=== PATIENT | male | born 1990 | race Two or more races ===

== ENCOUNTER 2019-11-11 14:41 | Inpatient (IN) | payer OTHER ==
--- NOTE | 2019-11-11 15:10 | BHS.RME ---
"Physical/Psych/Mental Status - Behavior General Behavior: Increased activity (restlessness, agitation) Eye Contact: Normal - Cooperativeness Cooperativeness: Cooperative - Thinking Thought Processes: Tight Thought content: Future oriented - Physical Health Problems Is patient presently having any pain?: No Does patient presently have any injuries (include location): No Does patient currently have a fever: No COWS - Scale Resting Pulse: 0= [place] 80 or Below Sweatin= No chills or Flushing Restless Observation: 3= Extraneous Movement Pupil Size: 1= Pupils >than Normal Bone or Joint Aches: 1= Mild Discomfort Runny Nose/ Eye Tearin= Nasal Congestion GI Upset > 30mins: 0= None Tremor Observation: 1= Tremor [place], Not Seen Yawning Observation: 0= None Anxiety or Irritability: 2=Irritable/Anxious Goose Flesh Skin: 0=Smooth Skin (Reynold Arechiga, 1990 Search Date: 11/11/2019 15:11:08 PM The Drug Utilization Report below displays all of the controlled substance prescriptions, if any, that your patient has filled in the last twelve months. The information displayed on this report is compiled from pharmacy submissions to the Department, and accurately reflects the information as submitted by the pharmacies. This report was requested by: Shelley Alcaraz | Reference #: [id number] There are no results for the search terms that you entered.) COWS Score: 9"
[2019-11-11 15:39] VITALS: BMI 27.4
--- NOTE | 2019-11-11 16:06 | HP ---
"COWS - Scale Resting Pulse: 0= [place] 80 or Below Sweatin= No chills or Flushing Restless Observation: 3= Extraneous Movement Pupil Size: 1= Pupils >than Normal Bone or Joint Aches: 1= Mild Discomfort Runny Nose/ Eye Tearin= Nasal Congestion GI Upset > 30mins: 0= None Tremor Observation: 1= Tremor [place], Not Seen Yawning Observation: 0= None Anxiety or Irritability: 2=Irritable/Anxious Goose Flesh Skin: 0=Smooth Skin (Reynold Arechiga, 1990 Search Date: 11/11/2019 15:11:08 PM The Drug Utilization Report below displays all of the controlled substance prescriptions, if any, that your patient has filled in the last twelve months. The information displayed on this report is compiled from pharmacy submissions to the Department, and accurately reflects the information as submitted by the pharmacies. This report was requested by: Shelley Alcaraz | Reference #: [id number] There are no results for the search terms that you entered.) COWS Score: 9 CIWA Score - Admission Criteria [facility] Guidelines: Admission for Medically Managed Detox: Requires at least one of the followin. CIWA greater than 12 2. Seizures within the past 24 hours 3. Delirium tremens within the past 24 hours 4. Hallucinations within the past 24 hours 5. Acute intervention needed for co occurring medical disorder 6. Acute intervention needed for co occurring psychiatric disorder 7. Severe withdrawal that cannot be handled at a lower level of care (continued vomiting, continued diarrhea, abnormal vital signs) requiring intravenous medication and/or fluids 8. Admitting History and Physical - Smoking History Smoking history: Current every day smoker Have you smoked in the past 12 months: Yes Aproximately how many cigarettes per day: 20 Admission ROS [facility] Chief Complaint: detox from heroin Allergies/Adverse Reactions: Allergies Allergy/AdvReac Type Severity Reaction Status Date / Time No Known Allergies Allergy Verified 11/11/19 16:41 History of Present Illness: Patient is a 29 y/o male with past medical history of anxiety who is presenting for detox from heroin. Patient began taking heroin at age 29. patient was taking percocets at age 27 but then started using heroin because percocet was too expensive. Patient uses 2 bundles a day. Patient denies using IV. Patient denies overdose. Last use was this morning. Patient also uses cocaine, 80 dollars worth a day and started using cocaine at age 28. Last use of cocaine was three days ago. Patient uses one once of marijuana a day. Patient takes 7 tabs of 10 mg a day. He buys off the street, is not prescribed. Patient does not drink alcohol. Patient smokes one pack of cigarettes a day. Patient is homeless, patient does not work. Denies any legal problems. patient meets inpatient criteria for heroin detox, poor recovery enviorment. Exam Limitations: No Limitations - Review of Systems Constitutional: Other (denies fever, chills) EENT: denies: Blurred Vision, Ear Pain, Hearing Loss Respiratory: denies: Cough, Shortness of Breath Cardiac: denies: Chest Pain GI: denies: Constipated, Diarrhea, Nausea, Vomiting Musculoskeletal: reports: Muscle Pain, Joint Stiffness Neuro: denies: Dizziness Endocrine: denies: Unexplained Weight Loss Hematology: denies: Anemia Patient History - Patient Medical History Hx Asthma: No Hx Chronic Obstructive Pulmonary Disease (COPD): No Hx Cardiac Disorders: No Hx Hypertension: No Hx Seizures: No Hx Diabetes: No Hx Gastrointestinal Disorders: No Hx Genitourinary Disorders: No Hx Sexually Transmitted Disorders: No Hx Renal Disease (ESRD): No Hx Depression: No Hx Suicide Attempt: No Hx Schizophrenia: No - Patient Surgical History Past Surgical History: No - PPD History Previous Implant?: No Documented Results: Negative w/o proof Implanted On Prior R Admission?: No - Smoking Cessation Smoking history: Current every day smoker Have you smoked in the past 12 months: Yes Aproximately how many cigarettes per day: 20 Initiated information on smoking cessation: No - Substances abused Heroin Other (specify): heroin Substance route: Inhalation Frequency: Daily Amount used: 7 bags Age of first use: 29 Date of last use: 11/11/19 Cocaine Substance route: Inhalation Frequency: 1-3 times last 30 days Amount used: $80 Age of first use: 28 Date of last use: 11/11/19 Other Other (specify): percocet Substance route: Oral Frequency: Daily Amount used: 10mg 7 tabs Age of first use: 27 Date of last use: 11/10/19 Marijuana/Hashish Substance route: Smoking Frequency: 1-2 times per week Amount used: 1 ounce Age of first use: 10 Date of last use: 11/10/19 Admission Physical Exam [facility] - Vital Signs Vital Signs: Vital Signs - 24 hr 11/11/19 15:28 Temperature 97.6 F Pulse Rate 56 L Respiratory 20 Rate Blood Pressure 117/71 - Physical General Appearance: Yes: No Apparent Distress HEENTM: Yes: Within Normal Limits, Normal ENT Inspection Respiratory: Yes: No Respiratory Distress, No Accessory Muscle Use Neck: No: Crepetius Cardiology: Yes: Regular Rhythm, Regular Rate Abdominal: Yes: Normal Bowel Sounds, Non Tender Back: Yes: Within Normal Limits Musculoskeletal: Yes: full range of Motion Extremities: No: Pedal Edema Neurological: Yes: Fully Oriented. No: Facial Droop - Diagnostic (1) Heroin withdrawal Current Visit: Yes Status: Acute (2) Cocaine abuse Current Visit: Yes Status: Acute (3) Opioid abuse Current Visit: Yes Status: Acute Cleared for Admission [facility] - Detox or Rehab [facility] Level of Care: Medically Managed Detox Regimen/Protocol: Methadone Breathalyzer - Breathalyzer Breathalyzer: 0 Vital Signs - Vital Signs Vital signs refused: No Temperature: 97.6 F Temperature source: Oral Pulse Rate: 56 Respiratory Rate: 20 Blood Pressure: 117/71 BP Location: Left Arm - Height Height: 5 ft 2 in - Weight Weight: 68.039 kg - BMI Body Mass Index (BMI): 27.4 Urine Drug Screen - Test Device Lot number: [id number] Expiration date: 06/16/21 - Control Is test valid?: Yes - Results Drug screen NEGATIVE: No Urine drug screen results: THC-Marijuana, KALEB-Cocaine, FEN-Fentanyl Inpatient Rehab Admission - Rehab Decision to Admit Inpatient rehab admission?: No"
[2019-11-11] MEDS ORDERED: ACETAMINOPHEN 325 MG TABLET (FP) PO PRN ×2 (16:11)
[2019-11-11] MEDS ORDERED: IBUPROFEN 400 MG TABLET (FP) PO PRN (16:11)
[2019-11-11] MEDS ORDERED: MAGNESIUM CITRATE 300 ML BOTTLE PO PRN (16:11)
[2019-11-11] MEDS ORDERED: BISMUTH SUBSALICYLATE 524 MG/30 ML UD PO PRN (16:11)
[2019-11-11] MEDS ORDERED: ONDANSETRON *ODT* 4 MG TABLET SL PRN (16:11)
[2019-11-11] MEDS ORDERED: METHADONE HCL 10 MG TABLET (FOR DETOX USE ONLY) PO ONE (16:11)
[2019-11-11] MEDS ORDERED: NICOTINE POLACRILEX 2 MG GUM BUC PRN (16:11)
[2019-11-11] MEDS ORDERED: MENTHOL/PHENOL 1 EACH UD MM PRN (16:11)
[2019-11-11] MEDS ORDERED: MAG HYDROX/AL HYDROX/SIMETH 30 ML UNIT-DOSE CUP PO PRN (16:11)
[2019-11-11] MEDS ORDERED: METHOCARBAMOL 500 MG TABLET PO PRN (16:11)
[2019-11-11] MEDS ORDERED: cloNIDine HCL 0.1 MG TABLET PO PRN (16:11)
[2019-11-11] MEDS ORDERED: MAGNESIUM HYDROX 2400MG/30ML ORAL SUSPENSION 30 ML CUP PO PRN (16:11)
[2019-11-11] MEDS: PRENATAL VITAMINS W/ FOLIC ACID TABLET (FP) PO SCH (17:12)
[2019-11-11] MEDS: NICOTINE 21 MG/24 HOURS TOPICAL PATCH TD SCH (17:12)
[2019-11-11] MEDS: hydrOXYzine PAMOATE 25 MG CAPSULE (FP) PO SCH ×2 (19:06→22:56)
[2019-11-11] MEDS: MELATONIN 5 MG TABLETS PO SCH (22:56)
[2019-11-11] MEDS: THIAMINE HCL 100 MG TABLET (FP) PO SCH (22:56)
[2019-11-12] MEDS: hydrOXYzine PAMOATE 25 MG CAPSULE (FP) PO SCH ×5 (07:10→22:55)
[2019-11-12] MEDS ORDERED: METHADONE HCL 10 MG TABLET (FOR DETOX USE ONLY) ONE (09:33)
[2019-11-12] MEDS ORDERED: METHADONE HCL 5 MG TABLET (FOR DETOX USE ONLY) ONE (09:34)
[2019-11-12] MEDS ORDERED: METHADONE (DETOX) 20 MG, METHADONE (DETOX) 5 MG PO ONE (10:00)
--- NOTE | 2019-11-12 10:20 | PN ---
Teaching Attending Note Name of Resident: Ella Boyle ATTENDING PHYSICIAN STATEMENT I saw and evaluated the patient. I reviewed the resident's note and discussed the case with the resident. I agree with the resident's findings and plan as documented. SUBJECTIVE: OBJECTIVE: ASSESSMENT AND PLAN: Agree with resident's findings and plan for detox.
[2019-11-12] MEDS: PRENATAL VITAMINS W/ FOLIC ACID TABLET (FP) PO SCH (10:31)
[2019-11-12] MEDS: NICOTINE 21 MG/24 HOURS TOPICAL PATCH TD SCH (10:31)
[2019-11-12 10:59] LABS: HEMATOCRIT 42.1 % (35.4-49); HEMOGLOBIN 14.2 GM/dL (11.7-16.9); MCH 32.5 pg (25.7-33.7); MCHC 33.7 g/dl (32.0-35.9); MEAN CELL VOLUME 96.5 fl (80-96); MEAN PLT VOLUME 9.3 fl (7.5-11.1); PLATELET COUNT 207 K/MM3 (134-434); RBC 4.37 M/mm3 (4.00-5.60); RDW 13.7 % (11.9-15.9); WHITE BLOOD COUNT 7.8 K/mm3 (4.0-10.0)
[2019-11-12 11:10] LABS: BILIRUBIN,TOTAL 0.8 mg/dL (0.2-1); BLOOD UREA NITROGEN 7.9 mg/dL (7-18); CALCIUM 9.1 mg/dL (8.5-10.1); CREATININE 0.9 mg/dL (0.55-1.3); POTASSIUM 4.4 mmol/L (3.5-5.1); TOT PROT 6.7 g/dl (6.4-8.2)
--- NOTE | 2019-11-12 15:04 | PN ---
S COWS - Scale Resting Pulse: 0= [place] 80 or Below Sweatin= No chills or Flushing Restless Observation: 1= Difficult to Sit Still Pupil Size: 1= Pupils >than Normal Bone or Joint Aches: 2= Severe Diffuse Aches Runny Nose/ Eye Tearin= Nasal Congestion GI Upset > 30mins: 2= Nausea/Diarrhea Tremor Observation of Outstretched Hands: 2= Slight Tremor Visible Yawning Observation: 1= 1-2x During Session Anxiety or Irritability: 2=Irritable/Anxious Goose Flesh Skin: 0=Smooth Skin COWS Score: 12 S Progress Note (SOAP) Subjective: alert,irritable,anxious,interrupted sleep,pain in the body and back, tremor,aching pain in the body and extremities Objective: 11/12/19 15:02 Vital Signs Temperature 98.0 F 11/12/19 12:52 Pulse Rate 59 L 11/12/19 12:52 Respiratory Rate 18 11/12/19 12:52 Blood Pressure 137/84 11/12/19 12:52 O2 Sat by Pulse Oximetry (%) 100 11/12/19 12:52 Laboratory Last Values WBC 7.8 K/mm3 (4.0-10.0) 11/12/19 08:10 RBC 4.37 M/mm3 (4.00-5.60) 11/12/19 08:10 Hgb 14.2 GM/dL (11.7-16.9) 11/12/19 08:10 Hct 42.1 % (35.4-49) 11/12/19 08:10 MCV 96.5 fl (80-96) H 11/12/19 08:10 MCH 32.5 pg (25.7-33.7) 11/12/19 08:10 MCHC 33.7 g/dl (32.0-35.9) 11/12/19 08:10 RDW 13.7 % (11.9-15.9) 11/12/19 08:10 Plt Count 207 K/MM3 (134-434) 11/12/19 08:10 MPV 9.3 fl (7.5-11.1) 11/12/19 08:10 Sodium 140 mmol/L (136-145) 11/12/19 08:10 Potassium 4.4 mmol/L (3.5-5.1) 11/12/19 08:10 Chloride 106 mmol/L (98-107) 11/12/19 08:10 Carbon Dioxide 30 mmol/L (21-32) 11/12/19 08:10 Anion Gap 4 MMOL/L (8-16) L 11/12/19 08:10 BUN 7.9 mg/dL (7-18) 11/12/19 08:10 Creatinine 0.9 mg/dL (0.55-1.3) 11/12/19 08:10 Est GFR (CKD-EPI)AfAm 135.19 11/12/19 08:10 Est GFR (CKD-EPI)NonAf 116.64 11/12/19 08:10 Random Glucose 77 mg/dL (74-106) 11/12/19 08:10 Calcium 9.1 mg/dL (8.5-10.1) 11/12/19 08:10 Total Bilirubin 0.8 mg/dL (0.2-1) 11/12/19 08:10 AST 11 U/L (15-37) L 11/12/19 08:10 ALT 18 U/L (13-61) 11/12/19 08:10 Alkaline Phosphatase 69 U/L (45-117) 11/12/19 08:10 Total Protein 6.7 g/dl (6.4-8.2) 11/12/19 08:10 Albumin 4.0 g/dl (3.4-5.0) 11/12/19 08:10 Syphilis Serology Non-reactive (NONREACTIVE) 11/12/19 08:10 COVID-19 (LISA) Not detected (Not Detected) 11/11/19 15:55 Assessment: 11/12/19 15:03 withdrawal symptom Plan: continue detox methadone regimen
--- NOTE | 2019-11-12 15:30 | EKG ---
Test Reason : Blood Pressure : / mmHG Vent. Rate : 050 BPM Atrial Rate : 050 BPM P-R Int : 168 ms QRS Dur : 088 ms QT Int : 408 ms P-R-T Axes : 063 065 044 degrees QTc Int : 371 ms SINUS BRADYCARDIA OTHERWISE NORMAL ECG NO PREVIOUS ECGS AVAILABLE Confirmed by ISABELLE CONLEY MD ([id number]) on 11/12/2019 3:29:57 PM Referred By: Confirmed By:ISABELLE CONLEY MD
[2019-11-12] MEDS: MELATONIN 5 MG TABLETS PO SCH (22:55)
[2019-11-12] MEDS: THIAMINE HCL 100 MG TABLET (FP) PO SCH (22:55)
[2019-11-13] MEDS: hydrOXYzine PAMOATE 25 MG CAPSULE (FP) PO SCH ×3 (06:58→15:21)
--- NOTE | 2019-11-13 09:28 | PN ---
BHS COWS - Scale Resting Pulse: 1= [place] 81-100 Sweatin= No chills or Flushing Restless Observation: 0= Sits Still Pupil Size: 0= Normal to Room Light Bone or Joint Aches: 0= None Runny Nose/ Eye Tearin= None GI Upset > 30mins: 1= Stomach Cramp Tremor Observation of Outstretched Hands: 0= None Yawning Observation: 0= None Anxiety or Irritability: 2=Irritable/Anxious Goose Flesh Skin: 0=Smooth Skin COWS Score: 4 BHS Progress Note (SOAP) Subjective: Patient was examined in the room. Patient stated he has mild nausea and has anxiety. Patient has no further complaints. Objective: 11/13/19 09:28 General: Patient alert and in no acute distress, WNWD Mental status: Patient judgment intact MSK/Neuro: Patient MS 5/5 Gait: Patient ambulates properly, gait steady 11/13/19 09:31 CBC, BMP 11/12/19 08:10 11/12/19 08:10 Last Vital Signs Temp Pulse Resp BP Pulse Ox 97.7 F 73 18 103/66 100 11/13/19 08:40 11/13/19 08:40 11/13/19 08:40 11/13/19 08:40 11/13/19 08:40 Current Medications Generic Name Dose Route Start Last Admin Trade Name Freq PRN Reason Stop Dose Admin Acetaminophen 650 mg 11/11/19 16:11 Tylenol - PO Q6H PRN PAIN LEVEL 4 - 6 Acetaminophen 650 mg 11/11/19 16:11 Tylenol - PO Q6H PRN FEVER Al Hydroxide/Mg Hydroxide 30 ml 11/11/19 16:11 Mylanta Oral Suspension - PO Q6H PRN DYSPEPSIA Bismuth Subsalicylate 524 mg 11/11/19 16:11 Pepto-Bismol - PO Q1H PRN DIARRHEA Clonidine 0.1 mg 11/11/19 16:11 Catapres - PO 11/13/19 23:59 Q4H PRN Withdrawal Symptoms Eucalyptus/Menthol/Phenol/Sorbitol 1 each 11/11/19 16:11 Cepastat Lozenge - MM 11/17/19 16:11 Q4H PRN SORE THROAT Hydroxyzine Pamoate 25 mg 11/11/19 18:00 11/13/19 06:58 Vistaril - PO 11/17/19 16:11 Not Given Q4HWA NIKIA Ibuprofen 400 mg 11/11/19 16:11 Motrin - PO Q6H PRN PAIN LEVEL 1 - 3 Magnesium Citrate 300 ml 11/11/19 16:11 Citroma - PO Q48H PRN CONSTIPATION Magnesium Hydroxide 30 ml 11/11/19 16:11 Milk Of Magnesia - PO PRN PRN CONSTIPATION Melatonin 5 mg 11/11/19 22:00 11/12/19 22:55 Melatonin PO 5 mg HS NIKIA Administration Methadone HCl 5 mg 11/16/19 06:00 Dolophine - PO 11/16/19 06:01 ONCE@0600 ONE Methadone HCl 10 mg 11/15/19 10:00 Dolophine - PO 11/15/19 10:01 ONCE ONE Methadone HCl 20 mg 11/13/19 10:00 Dolophine - PO 11/13/19 10:01 ONCE ONE Methadone HCl 10 mg/ Methadone 15 mg 11/14/19 10:00 HCl 5 mg PO 11/14/19 10:01 ONCE ONE Methocarbamol 500 mg 11/11/19 16:11 11/12/19 10:32 Robaxin - PO 11/17/19 16:11 500 mg Q6H PRN Administration MUSCLE SPASMS Nicotine 21 mg 11/11/19 16:15 11/12/19 10:31 Nicoderm Patch - TD Not Given DAILY NIKIA Nicotine Polacrilex 2 mg 11/11/19 16:11 Nicorette Gum - BUC Q2H PRN NICOTINE REPLACEMENT RX Ondansetron HCl 4 mg 11/11/19 16:11 Zofran Odt - SL 11/17/19 16:12 Q8H PRN Nausea/Vomiting Multivit/Folic Acid/Iron 1 tab 11/11/19 16:15 11/12/19 10:31 Vitamins (Sjr) - PO 1 tab DAILY NIKIA Administration Thiamine HCl 100 mg 11/11/19 22:00 11/12/19 22:55 Vitamin B1 - PO 100 mg HS NIKIA Administration Discontinued Medications Generic Name Dose Route Start Last Admin Trade Name Freq PRN Reason Stop Dose Admin Methadone HCl 30 mg 11/11/19 16:11 11/11/19 17:12 Dolophine - PO 11/11/19 16:12 30 mg ONCE ONE Administration Methadone HCl 20 mg/ Methadone 25 mg 11/12/19 10:00 11/12/19 10:31 HCl 5 mg PO 11/12/19 10:01 25 mg ONCE ONE Administration Tuberculin PPD 5 units 11/11/19 16:11 11/11/19 17:18 Tubersol ([facility] Only) 5ml Vial ID 11/11/19 16:12 0.1 ml ONCE ONE Administration Assessment: 11/13/19 09:31 1. Patient here due to heroin, currently receiving methadone Plan: 1. Methadone protocol due to heroin use
[2019-11-13] MEDS ORDERED: METHADONE HCL 10 MG TABLET (FOR DETOX USE ONLY) PO ONE (10:00)
[2019-11-13] MEDS: NICOTINE 21 MG/24 HOURS TOPICAL PATCH TD SCH (10:48)
[2019-11-13] MEDS: PRENATAL VITAMINS W/ FOLIC ACID TABLET (FP) PO SCH (10:48)
[2019-11-13 13:06] VITALS: BP 123/82; PULSE 61; TEMP 96.8
--- NOTE | 2019-11-13 13:50 | DS ---
[facility] Detox Discharge Summary Admission Date: 11/11/19 Discharge Date: 11/13/19 - History Present History: Opioid Dependence Pertinent Past History: 29 yo with a hx of heroin use admitted 2 days ago. Pt states he wants to leave, gives a variety of reasons including but not limited to "It's my mother's birthday tomorrow", "will go to methadone clinic" although he has no appointment. No withdrawal complaints - Physical Exam Results Vital Signs: Vital Signs Temperature 96.8 F L 11/13/19 12:53 Pulse Rate 61 11/13/19 12:53 Respiratory Rate 18 11/13/19 12:53 Blood Pressure 123/82 11/13/19 12:53 O2 Sat by Pulse Oximetry (%) 99 11/13/19 12:53 Pertinent Admission Physical Exam Findings: PE GNL; WDWN, in no distress MS: nl mentation Motor: moves limbs well Coord: normal - Treatment Hospital Course: Detox Protocol Followed, Detoxed Safely, Discharged Condition Good - Medication Discharge Medications: Ambulatory Orders NK [No Known Home Medication] 11/11/19 - AMA Did Patient Leave Against Medical Advice: No
[2019-11-14] MEDS ORDERED: METHADONE (DETOX) 10 MG, METHADONE (DETOX) 5 MG PO ONE (10:00)
[2019-11-15] MEDS ORDERED: METHADONE HCL 10 MG TABLET (FOR DETOX USE ONLY) PO ONE (10:00)
[2019-11-16] MEDS ORDERED: METHADONE HCL 5 MG TABLET (FOR DETOX USE ONLY) PO ONE (06:00)
== END 2019-11-13 13:40 | disposition home or self-care (01) | DRG 773 ==
LOC: YASAS 14:41 → Y3N 16:00
PROVIDERS: ADMIT Allergy & Immunology; ATTEND Allergy & Immunology
PROC: HZ2ZZZZ Detoxification Services for Substance Abuse Treatment (ICD-10-PCS; principal; 2019-11-11)
DX: F11.23 Opioid dependence with withdrawal (principal); F14.20 Cocaine dependence, uncomplicated; F12.20 Cannabis dependence, uncomplicated; F17.210 Nicotine dependence, cigarettes, uncomplicated; Z56.0 Unemployment, unspecified; Z59.0 Homelessness
CPT/HCPCS: 36415; 80053; 85027; 86780; 93005; 93010; U0003